=== PATIENT | male | born 1970 | race Caucasian/White ===

== ENCOUNTER 2020-02-26 19:57 | Emergency (ER) | payer BC, SELFPAY ==
[2020-02-26 19:58] VITALS: BP 122/67; PULSE 76; RESP 18; TEMP 36.7; O2SAT 96; BMI 38.7
--- NOTE | 2020-02-26 19:59 | ECG_ITS ---
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 Measurements Intervals [place] Rate: 75 P: 33 WI: 149 QRS: 27 QRSD: 102 T: 28 QT: 374 QTc: 419 Interpretive Statements SINUS RHYTHM Compared to ECG 11/10/2015 00:11:24 No significant changes Electronically Signed On 02-27-2020 10:27:17 CDT by Rogelio Calhoun M.D. [id number] f
--- NOTE | 2020-02-26 20:00 | W.ED.SYNCOPE ---
HPI - Syncope General: Chief Complaint: Syncope Stated Complaint: Syncope, Dizziness Time Seen by Provider: 02/26/20 19:59 Source: patient and EMS Mode of arrival: EMS Limitations: no limitations History of Present Illness: HPI narrative: 50-year-old male who was out working in the [employer] today and states he fell he got overheated. He states he came to the house and felt very dizzy and passed out. This happened roughly 30 minutes ago. Patient states that since being in the ambulance and getting IV fluids he feels slightly better but still has a headache and feels dizzy. He denies hitting his head. Denies any chest pain. He has had no vomiting. MD complaint: loss of consciousness Onset (ago): minute(s) Associated symptoms: Deny abdominal pain, fever(s), headache(s) or nausea Review of Systems Const: Denies: fever(s), chills, body aches or change in appetite Eyes: Denies: blurry vision or eye discomfort ENMT: Denies: throat pain or dental pain Card: Reports: syncope Resp: Denies: dyspnea GI: Denies: abdominal pain, nausea, vomiting or diarrhea : Denies: dysuria Musc: Denies: neck pain or back pain Skin/Breast: Denies: rash Neuro: Denies: headache(s) Psych: Denies: depression Jimy/Lymph: Denies: easy bruising All/Imm: Denies: urticaria Physical Exam Const: COMMON NORMALS: no acute distress, patient oriented x3 and healthy appearing HENMT: COMMON NORMALS: normocephalic and atraumatic HEAD & SCALP: normocephalic and atraumatic Eye: COMMON NORMALS: Equal, round and reactive pupils present and EOMs intact bilaterally PUPIL: Yes Equal, round and reactive pupils present Neck/C-Spine: COMMON NORMALS: full ROM and supple Chest: COMMONS NORMALS: normal inspection of the chest and normal palpation of entire chest wall Resp: COMMON NORMALS: normal respiratory effort, No retractions, No use of accessory muscles and clear to auscultation bilaterally AUSCULTATION: clear to auscultation bilaterally Cardio: COMMON NORMALS: regular rate, regular rhythm and No murmurs present (Cardio) RATE: regular rate RHYTHM: regular rhythm GI: COMMON NORMALS: Normal to inspection, nondistended, normoactive bowel sounds present, Soft to palpation, non-tender and no masses PALPATION: Yes Soft to palpation Extremity: COMMON NORMALS: normal to inspection and full ROM Neuro: COMMON NORMALS: patient oriented x3, moves all extremities and no focal motor deficits Psych: COMMON NORMALS: mental status grossly normal, Normal thought process present and cooperative THOUGHT PROCESS: Normal thought process present Skin: COMMON NORMALS: no rashes or lesions noted and no wounds GENERAL SKIN EXAM: no rashes or lesions noted Course Vital Signs: Vital signs: Vital Signs Temperature 98.1 F 02/26/20 19:58 Pulse Rate 76 02/26/20 19:58 Respiratory Rate 18 02/26/20 19:58 Blood Pressure 122/67 02/26/20 19:58 Pulse Oximetry 96 02/26/20 19:58 MDM - Syncope MDM Narrative: Medical decision making narrative: Patient presents here with heat exposure likely causing his syncopal event. Patient feels much improved here after IV fluids and lab work and CT head are normal. He is stable for discharge and informed him needs to avoid the heat. He is to return to ER if worsening. He understands and agrees. He has no signs of cardiac cause. Lab Data: Labs: Lab Results 02/26/20 02/26/20 Range/Units 19:30 19:30 WBC 8.0 (4.0-10.0) 10^3/ uL RBC 4.97 (4.1-5.3) 10^6/u L Hgb 13.8 (11.7-16.6) g/dL Hct 44.5 (42.0-52.0) % MCV 89.5 (80-94) fL MCH 27.8 L (28.0-34.0) pg MCHC 31.0 (30.0-36.0) g/dL RDW 15.6 H (12.1-15.1) % Plt Count 304 (130-400) 10^3/c mm MPV 10.4 (7.4-10.4) fL Neut % (Auto) 69.4 % Lymph % (Auto) 18.9 % [place] % (Auto) 7.0 % Eos % (Auto) 3.8 % Baso % (Auto) 0.5 % Neut # (Auto) 5.53 (1.8-7.7) 10^3/u L Lymph # (Auto) 1.5 (0.8-4.8) 10^3/u L [place] # (Auto) 0.6 (0.2-0.9) 10^3/u L Eos # (Auto) 0.3 (0.0-0.8) 10^3/u L Baso # (Auto) 0.0 (0.0-0.1) 10^3/u L Nucleated RBC % (a uto) 0 % Nucleated RBCs # 0.0 /100WBC Sodium 138 (136-145) mmol/L Potassium 3.6 (3.5-5.1) mmol/L Chloride 100 (98-107) mmol/L Carbon Dioxide 26 (22-29) mmol/L Anion Gap 15.6 (5-19) BUN 17 (6-20) mg/dL Creatinine 1.4 H (0.7-1.2) mg/dL GFR Calculation 53.4 L (90-130) mL/min Glucose 104 (65-115) mg/dL Calculated Osmolal ity 283 L (285-295) mOsm/k g Calcium 9.5 (8.5-10.5) mg/dL Total Bilirubin 0.5 (0.15-1.2) mg/dL AST 40 (0-40) U/L ALT 44 H (0-41) U/L Alkaline Phosphata se 62 (40-130) IU/L Total Protein 7.5 (6.6-8.7) g/dL Albumin 4.2 (3.5-5.2) g/dL Globulin 3.3 (1.3-4.6) g/dL Imaging Data^: CT Head: Radiologist's impression: [place] [address] CT Scan Report Signed Patient: Clifton Bach Unit #: [id number] : 1970 Age/Sex: 50 / M ADM Date: 02/26/20 Loc: ER Room/Bed: Attending Dr: Ordering Provider/Ordering MD: Linsey Bonner MD Date of Service: 02/26/20 Procedure(s): CT head wo con* [id number] Accession Number(s): [id number] Report Number: [id number] PROCEDURE INFORMATION: Exam: CT Head Without Contrast Exam date and time: 02/26/2020 8:13 PM Age: 50 years old Clinical indication: Pain; Syncope and collapse; Headache not specified TECHNIQUE: Imaging protocol: Computed tomography of the head without contrast. Radiation optimization: All CT scans at this facility use at least one of these dose optimization techniques: automated exposure control; mA and/or kV adjustment per patient size (includes targeted exams where dose is matched to clinical indication); or iterative reconstruction. COMPARISON: No relevant prior studies available. FINDINGS: Evaluation of the brain demonstrates no areas of abnormal density. Size of ventricular system appears within normal limits for the patient's stated age. No depressed calvarial fracture is demonstrated. There is prominent opacification in visualized left frontal sinus and left ethmoid air cells, most compatible with mucosal disease. Visualized mastoid air cells demonstrate no significant opacification. CT/CT head wo con* [id number] IMPRESSION: No acute intracranial process is demonstrated. There is prominent opacification in visualized left frontal sinus and left ethmoid air cells, most compatible with mucosal disease. CXR: Radiologist's impression: [address] [address] XRay Report Signed Patient: Clifton Bach Unit #: [id number] : 1970 Age/Sex: 50 / M ADM Date: 02/26/20 Loc: ER Room/Bed: Attending Dr: Ordering Provider/Ordering MD: Linsey Bonner MD Date of Service: 02/26/20 Procedure(s): XR chest 1V portable [id number] Accession Number(s): [id number] Report Number: [id number] PROCEDURE INFORMATION: Exam: XR Chest, 1 View Exam date and time: 02/26/2020 8:31 PM Age: 50 years old Clinical indication: Shortness of breath; Additional info: Syncope TECHNIQUE: Imaging protocol: XR of the chest Views: 1 view. COMPARISON: CR Chest 1 [place] [id number] 03/09/2013 6:12 PM FINDINGS: Lung volumes are somewhat low. Otherwise no focal pulmonary consolidation is demonstrated on this single frontal image. No significant obscuration of the lateral costophrenic angles is demonstrated. No significant vascular congestion is demonstrated. There is evidence for old granulomatous disease. Visualized cardiac silhouette size appears prominently enlarged, accentuated by low lung volumes. Pericardial effusion and/or cardiomyopathy not excluded. There appears to be hiatal hernia. XR/XR chest 1V portable [id number] IMPRESSION: No definite acute pulmonary process is demonstrated. Visualized cardiac silhouette size appears prominently enlarged, accentuated by low lung volumes. Pericardial effusion and/or cardiomyopathy not excluded. There appears to be hiatal hernia. EKG Data^: EKG 1: Attestation: I personally reviewed and interpreted this EKG as follows: EKG interpretation date: 02/26/20 EKG interpretation time: 20:12 Interpretation: nsr hr [address] or t wave abnormalities qrs 102 qtc 403 Discharge Plan Discharge Patient Disposition: Home, Self-Care Clinical Impression: Heat exposure Syncope Qualifiers: Syncope type: unspecified Qualified Code(s): R55 - Syncope and collapse Condition: Stable Prescriptions: No Action tramadol 50 mg Tablet 50 mg PO TID PRN (Reason: Pain) RF: 0 pantoprazole 40 mg Tablet,Delayed Release (Dr/Ec) 40 mg PO DAILY RF: 0 lisinopril-hydrochlorothiazide 20-25 mg Tablet 1 tab PO DAILY RF: 0 Discharge Orders: Discharge Order (Routine); Ordered 02/26/20 Ordered By: Linsey Bonner Referrals: Bridger Lewis DO [Primary Care Provider] - 1-3 days Christine Fonseca FNP [Referring] - Discharge Diet: Advance as tolerated Discharge Activity: Resume usual activity Patient Instructions: Syncope (ED) Coding Level of 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
[2020-02-26 20:14] LABS: Basophils % 0.5 %; Eosinophils # 0.3 10^3/uL (0.0-0.8); Eosinophils % 3.8 %; Hematocrit 44.5 % (42.0-52.0); Hemoglobin 13.8 g/dL (11.7-16.6); Lymphocytes # 1.5 10^3/uL (0.8-4.8); Lymphocytes % 18.9 %; Mean Corpuscular Hemoglobin 27.8 pg (28.0-34.0); Mean Corpuscular Volume 89.5 fL (80-94); Mean Platelet Volume 10.4 fL (7.4-10.4); Monocytes # 0.6 10^3/uL (0.2-0.9); Neutrophils # 5.53 10^3/uL (1.8-7.7); Neutrophils % 69.4 %; Nucleated Red Blood Cells % 0 %; Platelet Count 304 10^3/cmm (130-400); Red Blood Count 4.97 10^6/uL (4.1-5.3); Red Cell Distribution Width 15.6 % (12.1-15.1)
[2020-02-26] MEDS: sodium chloride 0.9% 1,000 ML 999 ML IV ×2 (20:27→20:42)
[2020-02-26] MEDS: metoclopramide 5 mg/mL SDV 2 mL 10 MG IVP (20:29)
[2020-02-26] MEDS: diphenhydrAMINE 50 mg/mL SDV 1mL IVP (20:31)
[2020-02-26 20:34] LABS: Alanine Aminotransferase 44 U/L (0-41); Albumin Level 4.2 g/dL (3.5-5.2); Alkaline Phosphatase 62 IU/L (40-130); Anion Gap 15.6 (5-19); Aspartate Amino Transferase 40 U/L (0-40); Blood Urea Nitrogen 17 mg/dL (6-20); Calcium 9.5 mg/dL (8.5-10.5); Carbon Dioxide 26 mmol/L (22-29); Chloride 100 mmol/L (98-107); Globulin 3.3 g/dL (1.3-4.6); Glomerular Filtration Rate 53.4 mL/min (90-130); Glucose 104 mg/dL (65-115); Osmolality Calculated 283 mOsm/kg (285-295); Potassium 3.6 mmol/L (3.5-5.1); Sodium 138 mmol/L (136-145); Total Bilirubin 0.5 mg/dL (0.15-1.2); Total Protein 7.5 g/dL (6.6-8.7)
[2020-02-26 21:53] VITALS: BP 111/62; PULSE 65; RESP 18; O2SAT 100
== END 2020-02-26 21:56 | disposition home or self-care (01) ==
LOC: ER 20:58
PROVIDERS: Emergency Provider Emergency Medicine; PCP Family Medicine
DX: R55 Syncope and collapse (principal)
CPT/HCPCS: 12345; 70450; 71045; 80053; 85025; 93005; 96361; 96374; 96375; 99283; 99284; J1200; J2765; J7030

== ENCOUNTER 2020-10-06 14:45 | Outpatient (CLI) | payer OTHER, SELFPAY ==
--- NOTE | 2020-10-06 14:54 | XR_ITS ---
WS: [id number] CHEST 2 VIEWS HISTORY: FATIGUE/DYSPNEA/EDEMA COMPARISON: 02/26/2020 Lungs: Very minimal blunting of the LEFT costophrenic angle is stable. No pneumonia. Normal vasculatu re. Cardiac size: Normal. Mediastinum/Aorta: Calcified hilar lymph nodes. Bones: Normal. XR/XR chest 2V* [id number] IMPRESSION: Stable chest. No acute cardiopulmonary disease.
== END 2020-10-06 14:46 | disposition home or self-care (01) ==
PROVIDERS: PCP Family Medicine; Visit Provider Family Medicine
DX: R53.83 Other fatigue (principal); R06.00 Dyspnea, unspecified; R60.9 Edema, unspecified; G47.33 Obstructive sleep apnea (adult) (pediatric)
CPT/HCPCS: 71046

== ENCOUNTER 2020-10-17 12:51 | Outpatient (CLI) | payer OTHER, SELFPAY ==
[2020-10-17] MEDS: iohexol 300 mg/mL 50 mL Btl PO (14:28)
[2020-10-17] MEDS: iohexol 300 mg/mL 100 mL Btl IV (14:29)
--- NOTE | 2020-10-17 14:30 | CT_ITS ---
WS: [id number] CT ABDOMEN AND PELVIS WITH CONTRAST HISTORY: R10.32 - Left lower quadrant pain TECHNIQUE: Imaging performed of the abdomen and pelvis with IV contrast. Single phase imaging of the abdomen. Coronal and sagittal reformats are submitted. All CT scans at [facility] use at least one of these dose optimization techniques: automated exposure control; mA and/or kV adjustment per patient size (includes targeted exams where dose is matched to clinical indication); or iterativ e reconstruction. IV CONTRAST: Omnipaque 300; 95 mL IV. Oral contrast: Yes. DLP: 1872.82 mGy-cm. COMPARISON: 03/24/2018 Lower thorax: Lung bases are clear. Heart is normal size. Moderate size hiatal hernia. Liver/biliary system: Normal size liver with mild hepatic steatosis. LEFT hepatic cysts measuring up to 1.2 cm. No bile duct dilatation. Gallbladder: Mildly contracted gallbladder with no adjacent inflammation. Pancreas: Normal. Spleen: Normal. Adrenal glands: Normal. Right kidney: Cortical cyst measures 8 mm, unchanged. No obstruction. Left kidney: 4.5 cm posterior L EFT renal cyst is also stable. No obstruction. Aorta: Normal. Lymphadenopathy: None. Free fluid: None. GI tract: Normal appendix. There is mild constipation. Numerous diverticula within the transverse col on to the sigmoid. No acute inflammatory process. Abdominal wall: Fat-containing umbilical hernia. The orifice measures 2.2 cm. Induration in the fat s uggesting some mild ischemic changes and inflammatory process. Pelvis: Normal. Bones: No fractures or destruction. CT/CT abdomen pelvis w con* [id number] IMPRESSION: 1. Ventral abdominal wall hernia contains omental fat only with stranding. Str anding suggest inflammatory reaction with possible fat necrosis. 2. Extensive diverticular disease, greatest throughout the sigmoid colon. No d efinite acute inflammatory changes are identified. No abscess or free air. 3. Moderate size hiatal hernia.
== END 2020-10-17 12:52 | disposition home or self-care (01) ==
LOC: RAD 12:58
PROVIDERS: PCP Family Medicine; Visit Provider Surgery
DX: R10.32 Left lower quadrant pain (principal); K44.9 Diaphragmatic hernia without obstruction or gangrene; K57.30 Diverticulosis of large intestine without perforation or abscess without bleeding; K43.9 Ventral hernia without obstruction or gangrene
CPT/HCPCS: 74177

== ENCOUNTER 2020-10-21 13:47 | Outpatient (CLI) | payer OTHER, SELFPAY ==
--- NOTE | 2020-10-21 13:53 | USCV_ITS ---
Clifton Bach Age: 50 Gender: M : 1970 Exam Date: 10/21/2020 14:31 Ordering Phys: Bridger Lewis DO Technologist: Yoli Urena Exam Location: [facility] [place] Indication: EDEMA,DYSPNEA BP: 118 / 72 HR: 61 Rhythm: Sinus Technical Quality: Adequate MEASUREMENTS (Male / Female) Normal Values 2D ECHO LV Diastolic Diameter PLAX 3.7 cm 4.2 - 5.9 / 3.9 - 5.3 cm LV Systolic Diameter PLAX 2.6 cm IVS Diastolic Thickness 1.5 cm 0.6 - 1.0 / 0.6 - 0.9 cm IVS Systolic Thickness 1.8 cm LVPW Diastolic Thickness 1.3 cm 0.6 - 1.0 / 0.6 - 0.9 cm LVPW Systolic Thickness 1.4 cm LVOT Diameter 2.0 cm LV Ejection Fraction 2D Teich 55.4 % LV Ejection Fraction MOD 2C 59.8 % LV Ejection Fraction 2C AL 59.7 % LA Diameter 3.2 cm LA Width 4.7 cm LA Height 5.1 cm RA Width 3.3 cm RA Height 4.9 cm Aorta at Sinotubular Diameter 2.6 cm M-MODE LV Diastolic Diameter MM 4.7 cm 4.2 - 5.9 / 3.9 - 5.3 cm LV Systolic Diameter MM 2.8 cm LV Ejection Fraction MM Teich 70.7 % IVS Diastolic Thickness MM 1.5 cm 0.6 - 1.0 / 0.6 - 0.9 cm IVS Systolic Thickness MM 1.5 cm LVPW Diastolic Thickness MM 1.5 cm 0.6 - 1.0 / 0.6 - 0.9 cm LVPW Systolic Thickness MM 1.3 cm Aortic Annulus Diameter 3.1 cm LA Ao Ratio MM 1.1 MV E Point Septal Separation 0.9 cm DOPPLER AV Peak Velocity 142.0 cm/s LVOT Peak Velocity 113.0 cm/s AV Area Cont Eq vti 2.3 cm squared AV Area Cont Eq pk 2.5 cm squared MV Area PHT 3.6 cm squared Mitral E to A Ratio 1.4 MV E' Velocity 77.0 cm/s Mitral E to MV E' Ratio 9.7 Mitral E to LV E' Lateral Ratio 9.7 Mitral E to LV E' Septal Ratio 9.8 TR Peak Velocity 178.0 cm/s TR Peak Gradient 12.7 mmHg TV Peak E Velocity 80.0 cm/s Right Atrial Pressure 3.0 mmHg Pulmonary Artery Systolic Pressu 15.7 mmHg PV Peak Velocity 57.3 cm/s RV Acceleration Time 0.2 s RV Ejection Time 0.3 s RV AcT/ET 0.5 FINDINGS Left Ventricle Normal left ventricular cavity size. Normal left ventricular systolic function. No regional wall motion abnormalities. Left ventricular ejection fraction is estimated at 65 %. Normal diastolic function. Right Ventricle The right ventricle is normal in size and function. Right Atrium The right atrium is normal in size. Left Atrium The left atrium is normal in size. Mitral Valve Structurally normal mitral valve without significant stenosis or prolapse. There is no mitral regurgitation. Aortic Valve Structurally normal aortic valve without significant sclerosis or stenosis. There is no aortic regurgitation. Tricuspid Valve Structurally normal tricuspid valve without significant stenosis or regurgitation. Pulmonary artery systolic pressure is normal. Pulmonic Valve Structurally normal pulmonic valve without significant stenosis. There is no pulmonic regurgitation. Pericardium Normal pericardium without effusion. Aorta Normal ascending aorta dimension. CONCLUSIONS 1-Normal left ventricular cavity size. Normal left ventricular systolic function. No regional wall motion abnormalities. Left ventricular ejection fraction is estimated at 65 %. Normal diastolic function. 2-No significant valve abnormalities. 3-There is no pericardial effusion. 4-Right atrial pressure is around 5 mm of mercury. 5-There are no prior echocardiogram studies to compare. Oleg Rushing MD (Electronically Signed) Final Date: 21 October 2020 17:55 S
== END 2020-10-21 13:48 | disposition home or self-care (01) ==
LOC: RAD 13:48
PROVIDERS: PCP Family Medicine; Visit Provider Family Medicine
DX: R53.83 Other fatigue (principal); R06.02 Shortness of breath; R60.9 Edema, unspecified; G47.33 Obstructive sleep apnea (adult) (pediatric)
CPT/HCPCS: 93306

== ENCOUNTER 2020-11-29 09:54 | Outpatient (CLI) | payer OTHER, SELFPAY ==
--- NOTE | 2020-11-29 08:52 | PFTS_ITS ---
Date of Study:11/29/20 Date of Dictation: 12/02/20 MECHANICS: Prebronchodilator Forced vital capacity (FVC) is normal. Prebronchodilator Forced expiratory volume in one second (FEV1) is normal. FEV1/FVC is normal. Post bronchodilator study not performed. FLOW VOLUME LOOP: normal . LUNG VOLUMES:normal DIFFUSING CAPACITY FOR CARBON MONOXIDE: normal . INTERPRETATION: Spirometry and Gas tranfer are normal. [facility]
[2020-11-29 10:30] VITALS: BP 120/69; BP 145/73
== END 2020-11-29 09:55 | disposition home or self-care (01) ==
LOC: RT 09:58
PROVIDERS: PCP Family Medicine; Visit Provider Family Medicine
DX: R53.83 Other fatigue (principal); R06.00 Dyspnea, unspecified; R60.9 Edema, unspecified; G47.33 Obstructive sleep apnea (adult) (pediatric)
CPT/HCPCS: 94010; 94618; 94729

== ENCOUNTER → 2021-02-09 11:49 | Outpatient (BNVA) | payer OTHER, SELFPAY | PROVIDERS: PCP Family Medicine; Visit Provider Internal Medicine Cardiovascular Disease | DX: I50.33 Acute on chronic diastolic (congestive) heart failure (principal); R06.02 Shortness of breath; R07.89 Other chest pain; I10 Essential (primary) hypertension | CPT/HCPCS: 80048; 83880; 85379 ==

== ENCOUNTER 2021-03-03 08:04 | Outpatient (CLI) | payer OTHER, SELFPAY ==
[2021-03-03 08:36] VITALS: BMI 37.0
--- NOTE | 2021-03-03 08:37 | ECG_ITS ---
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 Interpretive Statements NAME OF STUDY: LEXISCAN SESTAMIBI STRESS TEST INDICATION: Sob cp, PROCEDURE: At the baseline, the EKG revealed normal sinus rhythm with a heart rate of 65 bpm. Sinus arrhythmia present.. The baseline blood pressure was 113/65 mm Hg with a heart rate of 65 beats/min. Lexiscan was infused over a period of 20 seconds. A total of 0.4 milligrams of Lexiscan was infused. The stress phase was continued for a total of 5 minutes. Heart rate at the end of the stress phase was 76 with a blood pressure 119/63. The EKG at the peak infusion revealed no significant changes. Sestamibi was injected 20 seconds after the Lexiscan infusion. Blood pressure at the end of the recovery phase was 103/62 with a heart rate of 72 per minute. CONCLUSION: 1. No significant EKG changes with the LexiScan infusion 2. No LexiScan induced chest pain or cardiac arrhythmia 3. Normal blood pressure and heart rate response 4. Sestamibi/sestamibi perfusion scan pending; see separate report. Electronically Signed On 03-09-2021 7:07:51 CDT by Serg Landa M.D. [email or web address].Or[employer] Technologieslake [facility].[employer]/store/OM/[id number]
--- NOTE | 2021-03-03 08:37 | NMCV_ITS ---
NM thomas perf SPECT r/s* [id number] Clifton Bach Age: 51 Gender: M : 1970 Exam Date: 03/03/2021 09:23 Ordering Phys: Serg Landa MD ([email or web address]) Technologist: GABBY Lawrence Exam Location: [facility] Indications: SHORTNESS OF BREATH AND CHEST PAIN STRESS TEST Please [facility] IMAGE PROTOCOL Rest/Stress 1 Lexiscan Day Radiopharmaceutical Dose (mCi) Administration Site Administered by Rest: Tc-99m 11.0 IV GABBY Swan Sestamibi Stress:Tc-99m 32.5 IV GABBY Lawrence Sestamitorito Rest: 03-Mar-2021 60 Discovery 630 Stress: 03-Mar-2021 30 Discovery 630 0.4mg Lexiscan. Images obtained in supine and prone position. SPECT RESULTS Technical Quality: Excellent Raw Data Analysis: Normal Image Corrections: No attenuation or motion correction applied Summed Stress Score: 0 Summed Rest Score: 1 Summed Difference Score: 0 PERFUSION FINDINGS Fairly uniform myocardial tracer uptake . Some areas of attenuation were noted in the inferolateral region FUNCTIONAL RESULTS (calculated via Gated SPECT) Stress Image LV EF (%): 77 Stress EDV (mL):99 TID: 1.11 Stress ESV (mL):23 FUNCTIONAL FINDINGS: The segmental wall motion analysis revealed no gross wall motion abnormalities. IMPRESSIONS 1. Myocardial perfusion imaging revealing fairly uniform myocardial tracer uptake with no significant perfusion abnormalities. 2. Normal LV ejection fraction 77%. 3. No gross wall motion abnormalities. 4. Normal LV volume No significant coronary ischemia, based on the above findings Dr Serg Landa MD FACC (Electronically Signed) Final Date: 03 March 2021 16:32 S
[2021-03-03] MEDS: regadenoson 0.4 Mg/5 ml Syringe IVP (10:04)
[2021-03-03 10:11] VITALS: BP 103/62; PULSE 82
== END 2021-03-03 08:05 | disposition home or self-care (01) ==
PROVIDERS: PCP Family Medicine; Visit Provider Internal Medicine Cardiovascular Disease
DX: R07.89 Other chest pain (principal); R06.02 Shortness of breath
CPT/HCPCS: 78452; 93017; A9500; J2785

== ENCOUNTER 2021-06-01 17:54 | Emergency (ER) | payer OTHER, SELFPAY ==
[2021-06-01 18:26] VITALS: BP 98/61; PULSE 85; RESP 18; TEMP 37.9; O2SAT 98; BMI 40.3
--- NOTE | 2021-06-01 18:50 | ED_ITS ---
HPI - Abdominal Pain General: Chief Complaint: Abdominal Pain Stated Complaint: N/V,ABD PAIN,DIARRHEA Time Seen by Provider: 06/01/21 18:50 History of Present Illness: HPI narrative: Mr. Bach is a 51-year-old gentleman with history of hypertension, hyperlipidemia, diverticulosis, ventral incisional hernia who presents emergency department due to abdominal pain. Onset of symptoms was subacute approximately 2 days ago. He describes left sided abdominal pain which is moderate to severe in intensity. He has associated nausea, vomiting, diarrhea which is watery multiple episodes both of which are nonbloody. Symptoms are worse with any activity but does not go with rest. He has tried stay hydrated but still continues to have mild lightheadedness and generalized malaise. He reports that this feels different from his typical hernia pain or diverticulitis. No other significant changes in health, exacerbating, or alleviating factors identified. No abdominal trauma. Review of Systems General: Reports: 10 or more systems reviewed and unremarkable except in HPI and below PFSH ED PFSH: Medical History Abdominal pain Family History Brother CAD (coronary artery disease) Diabetes Father CAD (coronary artery disease) Diabetes Mother CAD (coronary artery disease) Grandfather CAD (coronary artery disease) Grandmother CAD (coronary artery disease) Family/Other Stroke Suicide Denies family history of Clotting disorder Dementia Chronic kidney disease (CKD) Anesthesia complication Bleeding disorder Lung disease Cancer Social History Smoking and tobacco status: never smoked Alcohol intake: former Physical Exam Narrative: EXAM NARRATIVE: GENERAL/CONSTITUTIONAL - well-appearing. Uncomfortable due to pain Eyes - PERRL, no conjunctival injection ENMT - Atraumatic external nose and ears. Moist mucous membranes NECK - supple. trachea midline CARDIOVASCULAR - regular rate and rhythm. RESPIRATORY -clear to auscultation bilaterally. No retractions or accessory muscle use. ABDOMEN/GI -tenderness palpation of the left side of abdomen. No evidence of remote peritonitis to percussion. MSK - Extremities without obvious deformity or tenderness to palpation SKIN - Warm, Dry NEURO - alert and appropriately oriented. Moves all extremities equally. Course ED course: - Patient was seen and evaluated by me at bedside - Patient placed on cardiac monitors, IV access obtained - Initial evaluation notable for exam as noted above. ?Symptom treatment ordered - Labs notable for no leukocytosis, mild evidence of dehydration on metabolic panel. Despite multiple attempts patient did not provide urine sample, he reports that long periods of no urine output are normal for him and denies urinary symptoms. He does not wish to have urinalysis obtained. - Imaging notable for fluid within the small bowel and colon without evidence of obstruction. Bladder findings noted, no leukocytosis and patient denies urinary symptoms as noted above. - Upon serial reexamination after treatment the patient was improved - Based on patient history, evaluation, labs, and imaging as interpreted the most likely cause of the patient's condition is unclear, may be related to a viral syndrome such as gastroenteritis - The results of ED evaluation were discussed with the patient including prescriptions and/or symptomatic cares (if applicable) including appropriate and responsible use, followup plan, and return precautions. The patient verbalized understanding and felt safe for discharge. - Patient discharged in satisfactory condition. Vital Signs: Vital signs: Vital Signs Temperature 100.3 F H 06/01/21 18:26 Pulse Rate 82 06/01/21 22:04 Respiratory Rate 16 06/01/21 22:04 Blood Pressure 118/77 06/01/21 22:04 Pulse Oximetry 95 06/01/21 22:04 MDM - Abdominal Pain Medical Records: Attestation: I reviewed the patient's medical records. Lab Data: Attestation: I reviewed the patient's lab results. Labs: Lab Results 06/01/21 06/01/21 20:35 20:35 WBC 7.8 10^3/uL 10^3/ uL (4.0-10.0) RBC 4.73 10^6/uL 10^6 /uL (4.1-5.3) Hgb 13.6 g/dL g/dL (11.7-16.6) Hct 42.3 % % (42.0-52.0) MCV 89.4 fl fl (80-94) MCH 28.8 pg pg (28.0-34.0) MCHC 32.2 g/dL g/dL (30.0-36.0) RDW 15.3 % H % (12.1-15.1) Plt Count 193 10^3/cmm 10^3 /cmm (130-400) MPV 9.8 fL fL (7.4-10.4) Neut % (Auto) 87.1 % % Lymph % (Auto) 4.4 % % Elliott % (Auto) 7.8 % % Eos % (Auto) 0.3 % % Baso % (Auto) 0.1 % % Neut # (Auto) 6.81 10^3/uL 10^3 /uL (1.8-7.7) Lymph # (Auto) 0.3 10^3/uL L 10^ 3/uL (0.8-4.8) Elliott # (Auto) 0.6 10^3/uL 10^3/ uL (0.2-0.9) Eos # (Auto) 0.0 10^3/uL 10^3/ uL (0.0-0.8) Baso # (Auto) 0.0 10^3/uL 10^3/ uL (0.0-0.1) Nucleated RBC % (a uto) 0 % % Nucleated RBCs # 0.0 /100WBC /100W BC Sodium 131 mmol/L L mmol /L (136-145) Potassium 3.4 mmol/L L mmol /L (3.5-5.1) Chloride 96 mmol/L L mmol/ L (98-107) Carbon Dioxide 26 mmol/L mmol/L (22-29) Anion Gap 12.4 (5-19) BUN 14 mg/dL mg/dL (6-20) Creatinine 1.0 mg/dL mg/dL (0.7-1.2) GFR Calculation 78.5 mL/min L mL/ min (90-130) Glucose 103 mg/dL mg/dL (65-115) Calculated Osmolal ity 273 mOsm/kg L mOs m/kg (285-295) Calcium 7.9 mg/dL L mg/dL (8.5-10.5) Total Bilirubin 0.7 mg/dL mg/dL (0.15-1.2) AST 25 U/L U/L (0-40) ALT 23 U/L U/L (0-41) Alkaline Phosphata se 48 IU/L IU/L (40-130) Total Protein 6.5 g/dL L g/dL (6.6-8.7) Albumin 3.5 g/dL g/dL (3.5-5.2) Globulin 3.0 g/dL g/dL (1.3-4.6) Lipase 20 U/L U/L (13-60) Discharge Plan Discharge Patient Disposition: Home Clinical Impression: Nausea and vomiting, Abdominal pain, Diarrhea Condition: Stable Prescriptions: New Zofran 4 mg tablet 4 mg PO Q8H 5 Days Qty: 15 RF: 0 No Action polyethylene glycol 3350 [Miralax] 17 gram/dose powder 17 g PO DAILY RF: 0 psyllium husk [Metamucil] 0.4 gram capsule 0.4 g PO DAILY RF: 0 esomeprazole magnesium [Nexium] 40 mg capsule,delayed release(DR/EC) 40 mg PO DAILY RF: 0 famotidine 20 mg tablet 20 mg PO DAILY RF: 0 tramadol 50 mg Tablet 50 mg PO TID PRN (Reason: Pain) RF: 0 lisinopril-hydrochlorothiazide 20-25 mg Tablet 1 tab PO DAILY RF: 0 Discharge Orders: Discharge ED (Routine); Ordered 06/01/21 Ordered By: Surya Tamayo Referrals: Bridger Lewis DO [Primary Care Provider] - Discharge Diet: Advance as tolerated and Clear Liquid Discharge Activity: Resume usual activity Patient Instructions: Diarrhea - Adult, Dehydration (ED), Acute Nausea and Vomiting (ED), Abdominal Pain (ED), Opioid Safety Activity Restrictions/Additional Instructions: Followup with PCP. Return to ED as needed. Coding Level of Care Code ED Building Economist for Kristy Alvares
--- NOTE | 2021-06-01 19:30 | CTR_ITS ---
PROCEDURE INFORMATION: Exam: CT Abdomen And Pelvis With Contrast Exam date and time: 06/01/2021 7:30 PM Age: 51 years old Clinical indication: Nausea and vomiting and other: Diarrhea; Prior surgery; Surgery type: Hernia; Additional info: N/v/d TECHNIQUE: Imaging protocol: Computed tomography of the abdomen and pelvis with contrast. Sagittal and coronal reformatted images were created and reviewed. Radiation optimization: All CT scans at this facility use at least one of these dose optimization techniques: automated exposure control; mA and/or kV adjustment per patient size (includes targeted exams where dose is matched to clinical indication); or iterative reconstruction. Contrast material: OMNI 300; Contrast volume: 95 ml; Contrast route: INTRAVENOUS (IV); COMPARISON: CT abdomen pelvis w con* [id number] 10/17/2020 2:44 PM RADIATION DOSE METRICS: Total DLP (mGy-cm): 1975.44 FINDINGS: Lungs: Dependent atelectasis in the visualized lungs. Pleural spaces: No pleural effusion. Heart: Visualized cardiac chambers are unremarkable. Liver: Multiple small cysts in the liver are stable, the largest measures 1.5 cm. Gallbladder and bile ducts: The gallbladder is unremarkable. No biliary ductal dilatation. Pancreas: The pancreas is unremarkable. No pancreatic ductal dilatation. Spleen: The spleen is unremarkable. Adrenal glands: The right and left adrenal glands are unremarkable. Kidneys and ureters: Simple cyst in the right kidney measuring 1.4 cm. Simple cyst in the left kidney measuring 4.7 cm. Findings are stable. The right and left ureters are unremarkable. Stomach and bowel: Stable small hiatal hernia. Numerous diverticula in the descending colon and sigmoid colon. No evidence for diverticulitis. Fluid within the small bowel and colon without evidence of bowel wall thickening. Appendix: The appendix is visualized and is unremarkable. No findings to suggest acute appendicitis. Intraperitoneal space: No free intraperitoneal air. No ascites. No loculated fluid collections to suggest an abscess. Vasculature: Mild atherosclerotic changes in the visualized arteries. No evidence for aortic aneurysm or aortic dissection. Hepatic veins, portal veins, splenic vein, and SMV are patent. Lymph nodes: No lymphadenopathy. Urinary bladder: Diffuse, mild wall thickening of the bladder. Reproductive: Unremarkable as visualized. Bones/joints: Degenerative changes in the spine, sacroiliac joints, and hips. Soft tissues: Small, fat-containing umbilical hernia. No evidence for strangulation. No acute abnormality in the extra-abdominal soft tissues. CT/CT abdomen pelvis w con* [id number] IMPRESSION: 1. Fluid within the small bowel and colon without evidence of bowel wall thickening. This may reflect viral gastroenteritis in the appropriate clinical situation. 2. Stable small hiatal hernia. 3. Diffuse, mild wall thickening of the bladder. In the correct clinical setting, this may suggest cystitis. Recommend correlation with laboratory findings. Alternatively, this may be secondary to chronic outlet obstruction. 4. Descending colon and sigmoid colon diverticulosis. No evidence for diverticulitis. 5. Incidental/nonacute findings are listed in the report. COMMENTS: Consistent with the [employer]'s Incidental Findings Committee white paper (J Am Elmer Radiol 2018): Any incidental renal lesion less than 1 cm or classified as too small to characterize, or any incidental cystic renal lesion characterized as simple-appearing, is likely benign. No follow-up imaging is recommended for these lesions per consensus recommendations based on imaging criteria. Radiation Dose CTDIVOL = (mGy): DLP = 1976.44 (mGy-cm)
[2021-06-01] MEDS: ondansetron 2 mg/ML SDV 2 mL 4 MG IVP (19:40)
[2021-06-01] MEDS: ketorolac 30 mg/mL INJ 15 MG IVP (19:40)
[2021-06-01] MEDS: lactated ringers 1,000 ML 999 ML IV (19:40)
[2021-06-01] MEDS: iohexol 300 mg/mL 100 mL Btl IV (19:53)
--- NOTE | 2021-06-01 20:24 | PC.NURSE ---
Unable to provide urine specimen; will try again after some fluids infuse.
[2021-06-01 20:43] LABS: Basophils % 0.1 %; Eosinophils % 0.3 %; Hematocrit 42.3 % (42.0-52.0); Hemoglobin 13.6 g/dL (11.7-16.6); Lymphocytes # 0.3 10^3/uL (0.8-4.8); Lymphocytes % 4.4 %; Mean Corpuscular HGB Conc 32.2 g/dL (30.0-36.0); Mean Corpuscular Hemoglobin 28.8 pg (28.0-34.0); Mean Corpuscular Volume 89.4 fl (80-94); Mean Platelet Volume 9.8 fL (7.4-10.4); Monocytes # 0.6 10^3/uL (0.2-0.9); Monocytes % 7.8 %; Neutrophils # 6.81 10^3/uL (1.8-7.7); Neutrophils % 87.1 %; Nucleated Red Blood Cells % 0 %; Platelet Count 193 10^3/cmm (130-400); Red Blood Count 4.73 10^6/uL (4.1-5.3); Red Cell Distribution Width 15.3 % (12.1-15.1); White Blood Count 7.8 10^3/uL (4.0-10.0)
[2021-06-01 20:45] VITALS: BP 110/73; BP 118/77; BP 123/70; PULSE 97; RESP 16; O2SAT 96
[2021-06-01 21:06] LABS: Alanine Aminotransferase 23 U/L (0-41); Albumin Level 3.5 g/dL (3.5-5.2); Alkaline Phosphatase 48 IU/L (40-130); Anion Gap 12.4 (5-19); Aspartate Amino Transferase 25 U/L (0-40); Blood Urea Nitrogen 14 mg/dL (6-20); Calcium 7.9 mg/dL (8.5-10.5); Carbon Dioxide 26 mmol/L (22-29); Chloride 96 mmol/L (98-107); Glomerular Filtration Rate 78.5 mL/min (90-130); Glucose 103 mg/dL (65-115); Lipase 20 U/L (13-60); Osmolality Calculated 273 mOsm/kg (285-295); Potassium 3.4 mmol/L (3.5-5.1); Sodium 131 mmol/L (136-145); Total Bilirubin 0.7 mg/dL (0.15-1.2); Total Protein 6.5 g/dL (6.6-8.7)
[2021-06-01 22:04] VITALS: BP 118/77; PULSE 82; RESP 16; O2SAT 95
== END 2021-06-01 22:06 | disposition home or self-care (01) ==
PROVIDERS: Emergency Provider Emergency Medicine; PCP Family Medicine
DX: R10.9 Unspecified abdominal pain (principal); R19.7 Diarrhea, unspecified; R11.2 Nausea with vomiting, unspecified
CPT/HCPCS: 74177; 80053; 83690; 85025; 96361; 96374; 96375; 99284; J1885; J2405; Q9967

== ENCOUNTER → 2023-01-16 08:04 | Outpatient (BNVA) | payer OTHER, SELFPAY | PROVIDERS: PCP Clinical Nurse Specialist Adult Health; Visit Provider Clinical Nurse Specialist Adult Health | DX: I10 Essential (primary) hypertension (principal) | CPT/HCPCS: 80053; 80061; 84443; 85025 ==

== ENCOUNTER 2023-03-08 08:51 | Outpatient (CLI) | payer OTHER, SELFPAY ==
--- NOTE | 2023-03-08 09:07 | XR_ITS ---
WS: [id number] Exam: XR shoulder LT min 2V* [id number] Date/Time of Exam: 03/08/2023 9:18 AM Reason For Exam: left shoulder impingement No fracture or dislocation. Arthrosis at the AC joint. Normal soft tissues. XR/XR shoulder LT min 2V* [id number] IMPRESSION: 1. AC joint arthrosis. 2. No other significant finding.
== END 2023-03-08 08:52 | disposition home or self-care (01) ==
PROVIDERS: PCP Clinical Nurse Specialist Adult Health; Visit Provider Clinical Nurse Specialist Adult Health
DX: M19.012 Primary osteoarthritis, left shoulder (principal)
CPT/HCPCS: 73030

== ENCOUNTER 2024-09-25 07:28 | Outpatient (CLI) | payer OTHER, SELFPAY ==
[2024-09-25 07:58] LABS: Basophils % 0.9 %; Eosinophils # 0.2 10^3/uL (0.0-0.8); Eosinophils % 5.3 %; Hematocrit 44.1 % (37-53); Lymphocytes # 1.1 10^3/uL (0.8-4.8); Lymphocytes % 23.5 %; Mean Corpuscular HGB Conc 31.7 g/dL (30-55); Mean Corpuscular Hemoglobin 29.9 pg (27-33); Mean Platelet Volume 9.8 fL (7.4-10.4); Monocytes # 0.3 10^3/uL (0.2-0.9); Monocytes % 7.3 %; Neutrophils # 2.83 10^3/uL (1.8-7.7); Neutrophils % 62.8 %; Nucleated Red Blood Cells % 0 %; Platelet Count 185 10^3/cmm (157-399); Red Blood Count 4.69 10^6/uL (3.85-5.65); Red Cell Distribution Width 14.6 % (12.1-15.1); White Blood Count 4.51 10^3/uL (3.29-11.43)
[2024-09-25 08:18] LABS: Alanine Aminotransferase 35 U/L (0-41); Albumin Level 3.9 g/dL (3.5-5.2); Alkaline Phosphatase 62 U/L (40-130); Anion Gap 11.9 (5-19); Aspartate Amino Transferase 27 U/L (0-40); Blood Urea Nitrogen 13 mg/dL (6-20); Carbon Dioxide 30 mmol/L (22-29); Chloride 105 mmol/L (98-107); Chol HDL Ratio 2.98 mg/dL (1.0-5.00); Cholesterol 146 mg/dL (0-200); Globulin 3.1 g/dL (1.3-4.6); Glomerular Filtration Rate 62.9 mL/min (90-130); Glucose 118 mg/dL (65-115); HDL Cholesterol 49 mg/dL (60-100); LDL Cholesterol Calculated 81 mg/dL (50-129); Osmolality Calculated 295 mOsm/kg (285-295); Potassium 4.9 mmol/L (3.5-5.1); Sodium 142 mmol/L (136-145); Total Bilirubin 0.5 mg/dL (0.15-1.2); Triglycerides 78 mg/dL (0-150); VLDL Cholestrol Calculation 16 mg/dL (0-30)
[2024-09-28 10:17] LABS: Estmated Average Glucose 108; Hemoglobin A1C 5.4 % (4.0-6.0)
== END 2024-09-25 07:29 | disposition home or self-care (01) ==
LOC: LAB 07:30
PROVIDERS: PCP Clinical Nurse Specialist Adult Health; Visit Provider Clinical Nurse Specialist Adult Health
DX: F51.02 Adjustment insomnia (principal); I10 Essential (primary) hypertension; G47.33 Obstructive sleep apnea (adult) (pediatric)
CPT/HCPCS: 36415; 80053; 80061; 83036; 85025

== ENCOUNTER → 2024-10-15 12:51 | Outpatient (BNVA) | payer OTHER, SELFPAY | PROVIDERS: PCP Clinical Nurse Specialist Adult Health; Visit Provider Podiatrist Foot & Ankle Surgery | DX: M79.672 Pain in left foot (principal); M72.2 Plantar fascial fibromatosis | CPT/HCPCS: 73630 ==

== ENCOUNTER → 2025-04-28 08:32 | Outpatient (BNVA) | payer OTHER, SELFPAY | PROVIDERS: PCP Clinical Nurse Specialist Adult Health; Visit Provider Clinical Nurse Specialist Adult Health | DX: I10 Essential (primary) hypertension (principal) | CPT/HCPCS: 80053; 80061; 82306; 82607; 85025 ==

== ENCOUNTER 2025-04-29 08:45 | Outpatient (CLI) | payer OTHER, SELFPAY ==
--- NOTE | 2025-04-29 08:54 | XRR_ITS ---
PROCEDURE INFORMATION: Exam: XR Cervical Spine Exam date and time: 04/29/2025 9:05 AM Age: 55 years old Clinical indication: Neck pain; Additional info: M54.12 - radiculopathy, cervical region TECHNIQUE: Imaging protocol: Radiologic exam of the cervical spine. Views: 2 or 3 views. COMPARISON: CR XR shoulder LT min 2V* [id number] 03/08/2023 9:20 AM FINDINGS: Bones/joints: Cervical spine alignment is normal. Vertebral body heights are normal. The tip of the odontoid is obscured, but the base of the odontoid is intact. The ring of C1 is intact. No fractures identified through C7. The C7-T1 articulation is obscured. A well corticated calcification abutting posterior tip of the C7 spinous process appears degenerative in nature. Mild anterior endplate spurs are present at C4-C5, C5-C6 and C6-C7. No significant disc height loss. Soft tissues: Prevertebral soft tissue thickness is within normal limits. XR/XR cervical spine 3V* [id number] IMPRESSION: [id number] degenerative disc disease at C4-C5, C5-C6 and C6-C7.
== END 2025-04-29 08:46 | disposition home or self-care (01) ==
PROVIDERS: PCP Clinical Nurse Specialist Adult Health; Visit Provider Clinical Nurse Specialist Adult Health
DX: M54.12 Radiculopathy, cervical region (principal)
CPT/HCPCS: 72040